=== PATIENT | male | born 1985 | race Hispanic/Latino ===

== ENCOUNTER 2018-05-17 23:26 | Emergency (ER) | payer BC ==
[2018-05-18 00:09] VITALS: BMI 29.1
[2018-05-18 00:22] VITALS: RESP 18; TEMP 98.7; O2SAT 100
--- NOTE | 2018-05-18 01:22 | ED PDOC ---
Arrival/HPI - General Historian: Patient - History of Present Illness Narrative History of Present Illness (Text): 05/18/18 01:18 33yo male with no pmhx who present with complaint of left shoulder pain s/p trauma. States he crashed in a board, while playing hockey tonight. States pain became increasingly worse as time goes on. He did not take any pain medication. Reports worse pain with full abduction. <Luis Boyer A - Last Filed: 05/18/18 01:18> <Paulo Meier - Last Filed: 05/18/18 02:16> - General Chief Complaint: Upper Extremity Problem/Injury Past Medical History - Provider Review Nursing Documentation Reviewed: Yes - Cardiac Hx Cardiac Disorders: No - Pulmonary Hx Respiratory Disorders: No - Neurological Hx Neurological Disorder: No - HEENT Hx HEENT Disorder: No - Renal Hx Renal Disorder: No - Endocrine/Metabolic Hx Endocrine Disorders: No - Hematological/Oncological Hx Blood Disorders: No - Integumentary Hx Dermatological Disorder: No - Musculoskeletal/Rheumatological Hx Musculoskeletal Disorders: No - Gastrointestinal Hx Gastroesophageal Reflux: Yes - Genitourinary/Gynecological Hx Genitourinary Disorders: No - Psychiatric Hx Substance Use: No <Luis Boyer A - Last Filed: 05/18/18 01:18> Family/Social History - Physician Review Nursing Documentation Reviewed: Yes Family/Social History: Unknown Family HX Smoking Status: Never Smoked Hx Alcohol Use: No Hx Substance Use: No <Luis Boyer A - Last Filed: 05/18/18 01:18> Allergies/Home Meds <Luis Boyer A - Last Filed: 05/18/18 01:18> <Paulo Meier - Last Filed: 05/18/18 02:16> Allergies/Adverse Reactions: Allergies No Known Allergies Allergy (Verified 05/18/18 00:09) Home Medications: Home Meds Medication Instructions Recorded Confirmed Doxycycline Hyclate [Doryx] 40 mg PO DAILY 05/18/18 05/18/18 Omeprazole Magnesium [Prilosec Otc] 20 mg PO DAILY 05/18/18 05/18/18 Review of Systems - Physician Review All systems were reviewed & negative as marked: Yes - Review of Systems Constitutional: Normal Eyes: Normal ENT: Normal Respiratory: Normal Cardiovascular: Normal Gastrointestinal: Normal Genitourinary Male: Normal Musculoskeletal: Arthralgias (left shoulder pain) Skin: Normal Neurological: Normal Endocrine: Normal Hemo/Lymphatic: Normal Psychiatric: Normal <Luis Boyer - Last Filed: 05/18/18 01:18> Physical Exam Vital Signs Reviewed: Yes Vital Signs Temp Pulse Resp BP Pulse Ox 05/18/18 00:22 98.7 F 78 18 124/81 100 Temperature: Afebrile Blood Pressure: Normal Pulse: Regular Respiratory Rate: Normal Appearance: Positive for: Well-Appearing, Non-Toxic, Comfortable Pain Distress: None Mental Status: Positive for: Alert and Oriented X 3 - Systems Exam Head: Present: Atraumatic, Normocephalic Pupils: Present: PERRL Extroacular Muscles: Present: EOMI Conjunctiva: Present: Normal Mouth: Present: Moist Mucous Membranes Neck: Present: Normal Range of Motion Respiratory/Chest: Present: Clear to Auscultation, Good Air Exchange. No: Respiratory Distress, Accessory Muscle Use Cardiovascular: Present: Regular Rate and Rhythm, Normal S1, S2. No: Murmurs Abdomen: No: Tenderness, Distention, Peritoneal Signs Back: Present: Normal Inspection Upper Extremity: Present: NORMAL PULSES, Tenderness (Over left proximal shoulder), Neurovascularly Intact. No: Cyanosis, Edema, Normal ROM (Limited on abduction up to 90degree secondary to pain), Swelling, Deformity Lower Extremity: Present: Normal Inspection. No: Edema Neurological: Present: GCS=15, CN II-XII Intact, Speech Normal Skin: Present: Warm, Dry, Normal Color. No: Rashes Psychiatric: Present: Alert, Oriented x 3, Normal Insight, Normal Concentration <Luis Boyer A - Last Filed: 05/18/18 01:18> Vital Signs Temp Pulse Resp BP Pulse Ox 05/18/18 00:22 98.7 F 78 18 124/81 100 <Paulo Meier - Last Filed: 05/18/18 02:16> Medical Decision Making ED Course and Treatment: 05/18/18 01:21 Pt in ED for stated history. Left shoulder xray - No acute fracture/dislocation Arm sling placed Result was DW the pt and he was referred to ortho - RAD Interpretation Radiology Orders: 05/18/18 00:17 SHOULDER LEFT [RAD] Stat <Luis Boyer A - Last Filed: 05/18/18 01:18> - RAD Interpretation Radiology Orders: 05/18/18 00:17 SHOULDER LEFT [RAD] Stat - Medication Orders Current Medication Orders: Discontinued Medications Ketorolac Tromethamine (Toradol) 60 mg IM STAT STA Stop: 05/18/18 01:19 Last Admin: 05/18/18 01:40 Dose: 60 mg MAR Pain Assessment Document 05/18/18 01:40 AD (Rec: 05/18/18 01:40 AD [facility] [place]-[email or web address]) Pain Reassessment Is this a pain reassessment? No Description Intensity of Pain at present 5 Pain Behavior Facial Grimacing IM Administration Charges Document 05/18/18 01:40 AD (Rec: 05/18/18 01:40 AD [facility] [place]-[facility]-[email or web address]) Injection Site MAR Injection Site Left Gluteus Av Charges for Administration # of IM Administrations 1 <Paulo Meier - Last Filed: 05/18/18 02:16> - PA / CUSTOMER SERVICE CLERK / Resident Statement / has reviewed & agrees with the documentation as recorded. <Paulo Meier - Last Filed: 05/18/18 02:16> Disposition/Present on Arrival - Present on Arrival Any Indicators Present on Arrival: No History of DVT/PE: No History of Uncontrolled Diabetes: No Urinary Catheter: No History of Decub. Ulcer: No History Surgical Site Infection Following: None - Disposition Have Diagnosis and Disposition been Completed?: Yes Disposition Time: 01:25 Patient Plan: Discharge <Luis Boyer - Last Filed: 05/18/18 01:18> <Paulo Meier - Last Filed: 05/18/18 02:16> - Disposition Diagnosis: Shoulder sprain Disposition: HOME/ ROUTINE Condition: STABLE Discharge Instructions (ExitCare): Shoulder Sprain Additional Instructions: Follow up with your doctor/orthopedist Return to ED for any new or worsening symptoms Prescriptions: Naproxen [Naprosyn] 500 mg PO BID #20 tablet traMADol [Ultram] 50 mg PO Q8 #8 tab Referrals: Magdi Riddle III, MD [Medical Doctor] - Follow up with primary Forms: [employer] (Lao)
[2018-05-18 04:18] VITALS: BP 123/85; PULSE 75
--- NOTE | 2018-05-18 10:22 | RAD ---
Date of service: 05/18/2018 PROCEDURE: Radiographs of the left shoulder joint HISTORY: shoulder pain COMPARISON: No prior. FINDINGS: BONES: Bone alignment and mineralization are normal. There is no acute displaced fracture or bone destruction. JOINTS: The glenohumeral and acromioclavicular joints are preserved. No significant degenerative osteoarthrosis. SOFT TISSUES: Normal. OTHER FINDINGS: None. IMPRESSION: No acute displaced fracture or dislocation.
== END 2018-05-18 01:30 | disposition home or self-care (01) ==
LOC: ED 23:26
DX: S43.402A Unspecified sprain of left shoulder joint, initial encounter (principal); W22.09XA Striking against other stationary object, initial encounter; Y93.22 Activity, ice hockey; Y92.39 Other specified sports and athletic area as the place of occurrence of the external cause
CPT/HCPCS: 73030; 96372; 99284; J1885